=== PATIENT | male | born 1960 | race Caucasian/White ===

== ENCOUNTER 2025-03-07 17:09 | Outpatient (CLI) | payer BC, SELFPAY | END 2025-03-07 17:10 | disposition home or self-care (01) | LOC: AMB 03-21 11:29 | PROVIDERS: Visit Provider Family Medicine | DX: R53.1 Weakness (principal); R42 Dizziness and giddiness; R50.9 Fever, unspecified; R32 Unspecified urinary incontinence | CPT/HCPCS: A0425; A0427 ==